=== PATIENT | female | born 1995 | race African-American/Black ===

== ENCOUNTER 2018-01-30 11:37 | Emergency (ER) | payer MEDICAID ==
[2018-01-30] MEDS ORDERED: Sodium Chloride 0.9% 1000 ML 1,000 ML IV STA ×2 (11:58→13:11)
[2018-01-30] MEDS ORDERED: Zofran 4 MG/2 ML VIAL IV ONE (11:58)
--- NOTE | 2018-01-30 11:58 | ERPHSYRPT ---
- History of Present Illness Time Seen by Provider: 01/30/18 11:40 Source: patient, family Exam Limitations: no limitations Physician History: 22 y/o female presents with 4 day h/o n/v/d and muscle aches. other individuals in family have had similar sx. no vaginal discharge, no hematuria or dysuria. Timing/Duration: day(s) (4) Severity: moderate Modifying Factors: Improves With: ibuprofen (approx 4 to 5 am this am) Associated Symptoms: nausea, vomiting, weakness, other (diarrhea), No abdominal pain Allergies/Adverse Reactions: latex Allergy (Verified 01/30/18 12:19) - Review of Systems Constitutional: Fever, Weakness Eyes: No Symptoms, No Eye Pain Ears, Nose, & Throat: No Symptoms, No Ear Pain, No Mouth Pain, No Painful Swallowing Respiratory: No Symptoms, No Cough, No Dyspnea, No Stridor, No Wheezing Cardiac: No Symptoms, No Chest Pain, No Palpitations, No Syncope Abdominal/Gastrointestinal: Nausea, Vomiting, Diarrhea, Appetite Changes, No Abdominal Pain, No Constipation Genitourinary Symptoms: No Symptoms, No Dysuria, No Frequency, No Hematuria Musculoskeletal: No Symptoms, No Back Pain, No Deformity, No Fall Skin: No Symptoms Neurological: No Symptoms Psychological: No Symptoms Endocrine: No Symptoms Hematologic/Lymphatic: No Symptoms Immunological/Allergic: No Symptoms All Other Systems: Reviewed and Negative - Past Medical History Pertinent Past Medical History: No Neurological History: No Pertinent History ENT History: No Pertinent History Cardiac History: No Pertinent History Respiratory History: No Pertinent History Endocrine Medical History: No Pertinent History Musculoskeletal History: No Pertinent History GI Medical History: No Pertinent History History: No Pertinent History Psycho-Social History: No Pertinent History Female Reproductive Disorders: No Pertinent History - Past Surgical History Neuro Surgical History: No Pertinent History Cardiac: No Pertinent History Respiratory: No Pertinent History Gastrointestinal: No Pertinent History Genitourinary: No Pertinent History Musculoskeletal: No Pertinent History Female Surgical History: No Pertinent History - Nursing Vital Signs Nursing Vital Signs: Initial Vital Signs Temperature 98.8 F 01/30/18 11:38 Pulse Rate 120 H 01/30/18 11:38 Respiratory Rate 20 01/30/18 11:38 Blood Pressure 120/68 01/30/18 11:38 O2 Sat by Pulse Oximetry 96 01/30/18 11:38 - Physical Exam General Appearance: mild distress, alert, anxiety Eye Exam: PERRL/EOMI, eyes nml inspection Ears, Nose, Throat Exam: normal ENT inspection, pharynx normal, moist mucous membranes Neck Exam: normal inspection, non-tender, supple, full range of motion Respiratory Exam: normal breath sounds, lungs clear, airway intact, No chest tenderness, No respiratory distress, No accessory muscle use, No rhonchi, No wheezing, No stridor Cardiovascular Exam: regular rate/rhythm, normal heart sounds, normal peripheral pulses Gastrointestinal/Abdomen Exam: soft, normal bowel sounds, No tenderness, No guarding, No rebound Pelvic Exam: not done Rectal Exam: not done Back Exam: normal inspection, normal range of motion, No CVA tenderness, No vertebral tenderness Extremity Exam: normal inspection, normal range of motion, pelvis stable Neurologic Exam: alert, oriented x 3, cooperative, photography assistant II-XII nml as tested Skin Exam: normal color, warm, dry Lymphatic Exam: No adenopathy SpO2 Interpretation: normal Oxygen Delivery: Room Air - Course Nursing assessment & vital signs reviewed: Yes Ordered Tests: Active Orders 24 hr Category Date Time Status Clean Catch Urine Specimen STAT Care 01/30/18 11:58 Active IV Insertion STAT Care 01/30/18 11:58 Active AMYLASE Stat Lab 01/30/18 12:10 Completed CBC W DIFF Stat Lab 01/30/18 12:10 Completed CULTURE,URINE Stat Lab 01/30/18 12:10 Received HCG,QUALITATIVE URINE Stat Lab 01/30/18 12:10 Completed LIPASE Stat Lab 01/30/18 12:10 Completed Lactic Acid Stat Lab 01/30/18 11:58 Completed Lactic Acid Stat Lab 01/30/18 14:13 Ordered UA W/RFX UR CULTURE Stat Lab 01/30/18 12:10 Completed Medication Summary Discontinued Medications Generic Name Dose Route Start Last Admin Trade Name Freq PRN Reason Stop Dose Admin Sodium Chloride 1,000 mls @ 999 mls/hr 01/30/18 11:58 01/30/18 12:18 Sodium Chloride 0.9% 1000 Ml IV 01/30/18 12:58 999 mls/hr .Q1H1M STA Administration Sodium Chloride Confirm 01/30/18 12:15 Sodium Chloride 0.9% 1000 Ml Administered 01/30/18 12:16 Dose 1,000 mls @ ud .ROUTE .STK-MED ONE Sodium Chloride 1,000 mls @ 999 mls/hr 01/30/18 13:11 01/30/18 13:52 Sodium Chloride 0.9% 1000 Ml IV 01/30/18 14:11 999 mls/hr .Q1H1M STA Administration Sodium Chloride Confirm 01/30/18 13:47 Sodium Chloride 0.9% 1000 Ml Administered 01/30/18 13:48 Dose 1,000 mls @ ud .ROUTE .STK-MED ONE Ondansetron HCl 4 mg 01/30/18 11:58 01/30/18 12:18 Zofran 4 Mg/2 Ml Vial IV 01/30/18 11:59 4 mg STAT ONE Administration Ondansetron HCl Confirm 01/30/18 12:15 Zofran 4 Mg/2 Ml Vial Administered 01/30/18 12:16 Dose 4 mg .ROUTE .STK-MED ONE Lab/Rad Data: Laboratory Result Diagrams 01/30/18 12:10 Laboratory Results 01/30/18 01/30/18 01/30/18 Range/Units 13:00 12:10 12:10 WBC (4.0-10.5) K/mm3 RBC (4.1-5.4) M/mm3 Hgb (12.0-16.0) gm/dl Hct (35-47) % MCV (78-100) fl MCH (26-32) pg MCHC (32-36) g/dl RDW (11.5-14.0) % Plt Count (150-450) K/mm3 MPV (6-9.5) fl Gran % (36.0-66.0) % Eos # (Auto) (0-0.5) Absolute Lymphs (auto) (1.0-4.6) Absolute Monos (auto) (0.0-1.3) Lymphocytes % (24.0-44.0) % Monocytes % (0.0-12.0) % Eosinophils % (0.00-5.0) % Basophils % (0.0-0.4) % Absolute Granulocytes (1.4-6.9) Basophils # (0-0.4) Lactic Acid (0.4-2.0) Amylase (30-110) U/L Lipase (23-300) U/L Urine Color AI (YELLOW) Urine Appearance SLIGHTLY CLOUDY (CLEAR) Urine pH 5.0 (5-6) Ur Specific [place] 1.034 (1.005-1.025) Urine Protein 100 (Negative) Urine Ketones MODERATE (NEGATIVE) Urine Blood NEGATIVE (0-5) Tono/ul Urine Nitrite NEGATIVE (NEGATIVE) Urine Bilirubin SMALL (NEGATIVE) Urine Urobilinogen 4 (0-1) mg/dL Ur Leukocyte Esterase NEGATIVE (NEGATIVE) Urine WBC (Auto) 6-10 (0-5) /HPF Urine RBC (Auto) 6-10 (0-2) /HPF U Epithel Cells (Auto) FEW (FEW) /HPF Urine Bacteria (Auto) MODERATE (NEGATIVE) /HPF Urine Mucus (Auto) MODERATE (NEGATIVE) /HPF Urine Culture Reflexed YES (NO) Urine Glucose NEGATIVE (NEGATIVE) mg/dL Urine HCG, Qual NEGATIVE (Negative) Influenza Type A Ag NEGATIVE (NEGATIVE) Influenza Type B Ag NEGATIVE (NEGATIVE) RSV (PCR) NEGATIVE (Negative) 01/30/18 01/30/18 01/30/18 Range/Units 12:10 12:10 11:58 WBC 7.9 (4.0-10.5) K/mm3 RBC 4.45 (4.1-5.4) M/mm3 Hgb 13.9 (12.0-16.0) gm/dl Hct 40.2 (35-47) % MCV 90.3 (78-100) fl MCH 31.2 (26-32) pg MCHC 34.6 (32-36) g/dl RDW 12.4 (11.5-14.0) % Plt Count 203 (150-450) K/mm3 MPV 10.5 H (6-9.5) fl Gran % 79.3 H (36.0-66.0) % Eos # (Auto) 0.02 (0-0.5) Absolute Lymphs (auto) 0.76 L (1.0-4.6) Absolute Monos (auto) 0.83 (0.0-1.3) Lymphocytes % 9.7 L (24.0-44.0) % Monocytes % 10.6 (0.0-12.0) % Eosinophils % 0.3 (0.00-5.0) % Basophils % 0.1 (0.0-0.4) % Absolute Granulocytes 6.24 (1.4-6.9) Basophils # 0.01 (0-0.4) Lactic Acid 2.0 (0.4-2.0) Amylase 62 (30-110) U/L Lipase 58 (23-300) U/L Urine Color (YELLOW) Urine Appearance (CLEAR) Urine pH (5-6) Ur Specific [place] (1.005-1.025) Urine Protein (Negative) Urine Ketones (NEGATIVE) Urine Blood (0-5) Tono/ul Urine Nitrite (NEGATIVE) Urine Bilirubin (NEGATIVE) Urine Urobilinogen (0-1) mg/dL Ur Leukocyte Esterase (NEGATIVE) Urine WBC (Auto) (0-5) /HPF Urine RBC (Auto) (0-2) /HPF U Epithel Cells (Auto) (FEW) /HPF Urine Bacteria (Auto) (NEGATIVE) /HPF Urine Mucus (Auto) (NEGATIVE) /HPF Urine Culture Reflexed (NO) Urine Glucose (NEGATIVE) mg/dL Urine HCG, Qual (Negative) Influenza Type A Ag (NEGATIVE) Influenza Type B Ag (NEGATIVE) RSV (PCR) (Negative) - Progress Progress: improved, re-examined Progress Note: 01/30/18 13:43 pt feeling much better. Counseled pt/family regarding: lab results, diagnosis, need for follow-up - Departure Time of Disposition: 14:29 Departure Disposition: Home Clinical Impression: Vomiting and diarrhea, Dehydration Condition: Stable Critical Care Time: No Referrals: DOCTOR,NO FAMILY [Primary Care Provider] - Additional Instructions: drink plenty of fluids. follow up with primary doctor for persistent symptoms. Prescriptions: Ondansetron HCl [Zofran] 4 mg PO TID PRN #10 tablet PRN Reason: Nausea/Vomiting
[2018-01-30 11:59] VITALS: O2SAT 96
[2018-01-30] MEDS ORDERED: Sodium Chloride 0.9% 1000 ML 1,000 ML ONE ×2 (12:15→13:47)
[2018-01-30] MEDS ORDERED: Zofran 4 MG/2 ML VIAL ONE (12:15)
[2018-01-30 12:21] LABS: BASOPHIL % 0.1 % (0.0-0.4); Basophil (Absolute #) 0.01 (0-0.4); Eosinophil % 0.3 % (0.00-5.0); Eosinophil (Absolute #) 0.02 (0-0.5); Granulocyte Absolute (ANC) 6.24 (1.4-6.9); Granulocytes % 79.3 % (36.0-66.0); Hematocrit 40.2 % (35-47); Hemoglobin 13.9 gm/dl (12.0-16.0); Lymphocyte (Absolute #) 0.76 (1.0-4.6); Lymphocytes % 9.7 % (24.0-44.0); Mean Cell Volume 90.3 fl (78-100); Mean Corpuscular Hemoglobin 31.2 pg (26-32); Mean Corpuscular Hgb Concent. 34.6 g/dl (32-36); Mean Platelet Volume 10.5 fl (6-9.5); Monocyte (Absolute #) 0.83 (0.0-1.3); Monocytes % 10.6 % (0.0-12.0); Platelet Count 203 K/mm3 (150-450); Red Blood Count 4.45 M/mm3 (4.1-5.4); Red Cell Distribution Width 12.4 % (11.5-14.0); White Blood Count 7.9 K/mm3 (4.0-10.5)
[2018-01-30 12:30] LABS: AMYLASE 62 U/L (30-110); Appearance SLIGHTLY CLOUDY (CLEAR); Bilirubin SMALL (NEGATIVE); Blood NEGATIVE Ery/ul (0-5); Glucose NEGATIVE (NEGATIVE); Ketones MODERATE (NEGATIVE); LIPASE 58 U/L (23-300); Leukocyte Esterase NEGATIVE (NEGATIVE); Nitrite NEGATIVE (NEGATIVE); Protein,Urine Dip 100 (Negative); Specific Gravity 1.034 (1.005-1.025); Urobilinogen 4 mg/dL (0-1)
[2018-01-30 14:16] LABS: INFLUENZA A NEGATIVE (NEGATIVE); INFLUENZA B NEGATIVE (NEGATIVE); RESPIRATORY SYNCTIAL VIRUS NEGATIVE (Negative)
[2018-01-30 14:52] VITALS: BP 116/84; PULSE 91
== END 2018-01-30 15:00 | disposition home or self-care (01) ==
LOC: ED 11:37
DX: R11.2 Nausea with vomiting, unspecified (principal); R19.7 Diarrhea, unspecified; E86.0 Dehydration; R53.1 Weakness
CPT/HCPCS: 36000; 36415; 81001; 82150; 83605; 83690; 84703; 85025; 87086; 87631; 96360; 96361; 96374; 99284; J2405